=== PATIENT | male | born 1955 | race Caucasian/White ===

== ENCOUNTER → 2019-01-25 | Outpatient (CLI) | payer BC | LOC: COL.RAD 07:09 | DX: R74.8 Abnormal levels of other serum enzymes (principal); Z85.46 Personal history of malignant neoplasm of prostate | CPT/HCPCS: Q9967 ==

== ENCOUNTER 2021-01-27 14:07 | Emergency (ER) | payer BC ==
[~2021-01-27] VITALS: Ht 182.9 cm; Wt 84.5 kg
[2021-01-27 14:26] LABS: BASO % 0.5 % (0.0-2.0); EOS # 0.2 (0.0-0.7); EOS % 3.1 % (0-4.0); GRAN # 4.1 (1.4-6.5); GRAN % 65.8 % (42.2-75.2); HEMATOCRIT 40.9 % (42.0-52.0); HEMOGLOBIN 14.1 g/dl (13.5-18.0); LYMPH # 1.3 (1.2-3.4); LYMPH % 20.2 % (20.0-51.0); MEAN CELL VOLUME 84 fl (80.0-100.0); MEAN CORPUSCULAR HEMOGLOBIN 29 pg (27.0-31.0); MEAN CORPUSCULAR HGB CONC 35 g/dl (33.0-37.0); MEAN PLATELET VOLUME 9.1 fl (7.4-10.4); MONO # 0.6 (0.1-0.6); MONO % 10.2 % (1.7-9.3); PLATELET COUNT 265 K/mm3 (130-400); REDCELL DISTRIBUTION WIDTH-CV 13.4 % (11.5-14.5)
[2021-01-27 14:46] LABS: ALBUMIN 4.7 gm/dL (3.5-5.0); BILIRUBIN,TOTAL 0.5 mg/dL (0.0-1.0); C-REACTIVE PROTEIN 0.7 mg/dL (0.0-0.9); CALCIUM 9.9 mg/dL (8.4-10.2); CREATININE, serum 1.21 (0.66-1.25); POTASSIUM 4.3 mmol/L (3.4-5.0); TOTAL PROTEIN 8.2 gm/dL (6.4-8.2)
[2021-01-27 17:20] VITALS: BP 109/86; PULSE 56
== END 2021-01-27 17:22 | disposition home or self-care (01) ==
LOC: COL.ER 14:07
PROVIDERS: Family Medicine
DX: R13.10 Dysphagia, unspecified (principal)
CPT/HCPCS: C9113; J2405; J2550; J2704; J7120

== ENCOUNTER → 2021-02-02 | Outpatient (CLI) | payer BC ==
[~2021-02-02] MED LIST: PROTONIX 40MG T40 MG PO
== END ==
LOC: COL.RAD 07:32
DX: K22.70 Barrett's esophagus without dysplasia (principal); K22.719 Barrett's esophagus with dysplasia, unspecified

== ENCOUNTER 2021-02-03 09:31 | Day surgery (SDC) | payer BC ==
[~2021-02-03] VITALS: Ht 182.9 cm; Wt 69.4 kg
[2021-02-03 10:53] VITALS: BP 134/99; PULSE 71; TEMP 97.2
[2021-02-03] MEDS ORDERED: PROTONIX 40MG T40 MG PO (11:51)
[2021-02-03 11:55] VITALS: BP 126/89; PULSE 67; TEMP 97.7
--- NOTE | 2021-02-03 11:55 | NUR ---
PATIENT BROUGHT BACK TO [facility] VIA CART, AMBULATED TO CHAIR WITHOUT DIFFICULTY. PLACED ON MONITORS, VITAL SIGNS STABLE. DENIES NAUSEA. REQUESTING APPLE JUICE. JEREMIE RN AT BEDSIDE FOR REPORT. PATIENT WAS DILATED, SOME DISCOMFORT NOTED. WARM BLANKET PROVIDED, CALL [facility] WITHIN REACH. WILL CONTINUE TO MONITOR.
[2021-02-03 12:10] VITALS: BP 147/86; PULSE 71
--- NOTE | 2021-02-03 12:10 | NUR ---
PATIENT IS DOING WELL, AT BEDSIDE TO DRIVE PATIENT HOME. DR. DEAL AT BEDSIDE TO DISCUSS RESULTS. WILL MONITOR.
[2021-02-03 12:25] VITALS: BP 153/99; PULSE 52
--- NOTE | 2021-02-03 12:25 | NUR ---
PATIENT STATES HE FEELS READY TO GO HOME. IV REMOVED, INTACT. VITAL SIGNS STABLE. PATIENT TO GET DRESSED AT THIS TIME.
--- NOTE | 2021-02-03 12:37 | NUR ---
DISCHARGE INSTRUCTIONS REVIEWED WITH AND PATIENT. ALL QUESTIONS ANSWERED. BROUGHT DOWN TO LOBBY VIA WHEEL CHAIR. ALL BELONGINGS IN HAND.
== END 2021-02-03 12:37 | disposition home or self-care (01) ==
LOC: SDCO 09:31
DX: K22.711 Barrett's esophagus with high grade dysplasia (principal); K22.710 Barrett's esophagus with low grade dysplasia; K44.9 Diaphragmatic hernia without obstruction or gangrene; K21.9 Gastro-esophageal reflux disease without esophagitis; Z20.822 Contact with and (suspected) exposure to COVID-19
CPT/HCPCS: C1726; J2704; J3010

== ENCOUNTER → 2021-11-04 | Outpatient (CLI) | payer BC | LOC: COL.RAD 07:16 | DX: C61 Malignant neoplasm of prostate (principal); N32.89 Other specified disorders of bladder | CPT/HCPCS: A9503; Q9967 ==

== ENCOUNTER → 2022-01-27 | Outpatient (CLI) | payer BC | LOC: COL.VAS 09:28 | DX: H53.9 Unspecified visual disturbance (principal) ==